=== PATIENT | female | born 1995 | race African-American/Black ===

== ENCOUNTER 2022-02-04 17:24 | Emergency (ER) | payer MEDICARE ==
[~2022-02-04] VITALS: Ht 157.5 cm; Wt 79.5 kg
[2022-02-04 17:44] VITALS: TEMP 97.4
[2022-02-04 20:24] VITALS: BP 133/101; PULSE 86
== END 2022-02-04 20:26 | disposition home or self-care (01) ==
LOC: COL.ER 17:24
DX: I10 Essential (primary) hypertension (principal); F20.9 Schizophrenia, unspecified; G47.00 Insomnia, unspecified; F17.200 Nicotine dependence, unspecified, uncomplicated; Z86.69 Personal history of other diseases of the nervous system and sense organs; Z28.310 Unvaccinated for COVID-19

== ENCOUNTER 2023-09-28 10:20 | Emergency (ER) | payer MEDICARE ==
[~2023-09-28] VITALS: Ht 157.5 cm; Wt 101.0 kg
[~2023-09-28 10:20] MED LIST: NORVASC 5MG5 MG/TAB PO
[2023-09-28] MEDS ORDERED: INDERAL 10MG10 MG PO (10:26)
[2023-09-28 10:28] VITALS: TEMP 97.6
[2023-09-28] MEDS ORDERED: SEROQUEL50 MG PO (10:28)
[2023-09-28] MEDS ORDERED: NORVASC 5MG5 MG/TAB PO ×3 (13:04→13:12)
[2023-09-28 13:25] VITALS: BP 137/94; PULSE 69
== END 2023-09-28 13:30 | disposition home or self-care (01) ==
LOC: COL.ER 10:20
DX: I10 Essential (primary) hypertension (principal); F17.210 Nicotine dependence, cigarettes, uncomplicated